=== PATIENT | female | born 1965 | race African-American/Black ===

== ENCOUNTER 2016-09-08 19:34 | Emergency (ER) | payer BC ==
[2016-09-08 19:58] VITALS: BP 148/75
[2016-09-08] MEDS ORDERED: DIPHENHYDRAMINE HCL 25 MG CAPSULE PO ONE (21:13)
[2016-09-08] MEDS ORDERED: PREDNISONE 20 MG TABLET PO ONE (21:13)
--- NOTE | 2016-09-08 21:17 | ER Document Report ---
HPI - HPI Patient complains to provider of: skin rash, itching Pain Level: Denies Context: Patient is a 51-year-old female that comes emergency department for chief complaint of a rash breakout on most of her upper body including her back, flank , and arms/hands. She states the rash is itchy, it starts in little fluid pockets and then becomes very dry. She states she was saw dermatology for years and was at first told she had psoriasis, than eczema. She is not currently on any medications for this. She denies any other symptoms. - REPRODUCTIVE LMP: na - DERM Skin Color: Normal Past Medical History - General Information source: Patient - Social History Smoking Status: Never Smoker Frequency of alcohol use: None Drug Abuse: None Lives with: Family Family History: None Patient has suicidal ideation: No Patient has homicidal ideation: No - Medical History Medical History: Negative Renal/ Medical History: Denies: Hx Peritoneal Dialysis Surgical Hx: Negative - Immunizations Immunizations up to date: Yes Hx Diphtheria, Pertussis, Tetanus Vaccination: Yes Vertical Provider Document - CONSTITUTIONAL General Appearance: WD/WN, No Apparent Distress - INFECTION CONTROL TRAVEL OUTSIDE OF THE [place] IN LAST 30 DAYS: No - HEENT HEENT: Atraumatic, Normal ENT Exam, Normocephalic - NECK Neck: Normal Inspection - RESPIRATORY Respiratory: Breath Sounds Normal, No Respiratory Distress O2 Sat by Pulse Oximetry: 96 - CARDIOVASCULAR Cardiovascular: Regular Rate, Regular Rhythm. negative: Tachycardia - Patient is not tachycardic on my exam - GI/ABDOMEN Gastrointestinal: Abdomen Soft, Abdomen Non-Tender - MUSCULOSKELETAL/EXTREMETIES Musculoskeletal/Extremeties: MACK FROM, Non-Tender - DERM Integumentary: Rash - Maculopapular rash on the arms, chest, and mid to upper back. Large areas of excoriation. Dried out areas of skin especially in the shoulder blade areas. No bulla, induration, fluctuance, pustules Course - Re-evaluation Re-evalutation: Patient with what appears to be on exam an extensive area of eczema rash. No evidence of induration, fluctuance, cellulitis, impetigo, or necrotizing fasciitis. Patient has already undergone treatment and diagnosis with dermatology, after discussion of treatment options patient will be treated with post short tapering course of prednisone because of her discomfort and also topical betamethasone. Discussed follow-up with primary care/dermatology, return precautions, patient states understanding and agreement. - Vital Signs Vital signs: Temp Pulse Resp BP Pulse Ox 98.9 F 112 H 18 148/75 H 96 09/08/16 19:56 09/08/16 19:56 09/08/16 19:56 09/08/16 19:56 09/08/16 19:56 Discharge - Discharge Clinical Impression: Skin rash, Pruritic rash Condition: Stable Disposition: HOME, SELF-CARE Additional Instructions: Your skin examination is consistent with eczema flare up. Because of the extensive rash I recommend the prednisone steroid taper in addition to cream on the worst locations as prescribed. Take Zyrtec during the day for itching (nonsedating), take Benadryl at night for itching. Follow-up with your primary care or dermatology for additional management. Return to emergency department for any concerning symptoms. Prescriptions: Betamethasone Dipropionate 1 applic TP DAILY #1 tube Cetirizine HCl [Zyrtec 10 mg Tablet] 1 tab PO DAILY #30 tablet Prednisone [Deltasone 10 mg Tablet] 10 mg PO ASDIR PRN #21 tablet PRN Reason:
== END 2016-09-08 21:24 | disposition home or self-care (01) ==
LOC: ER 19:34
DX: R21 Rash and other nonspecific skin eruption (principal); L29.8 Other pruritus
CPT/HCPCS: 99282; J7512